=== PATIENT | male | born 1990 | race African-American/Black ===

== ENCOUNTER 2017-01-31 23:48 | Emergency (ER) | payer MEDICAID, OTHER ==
[~2017-01-31] VITALS: Ht 188 cm; Wt 183.6 kg
[~2017-01-31 23:48] MED LIST: ALBUAER3 INH; MONT10TA2 PO
[2017-01-31 23:51] VITALS: BP 171/102; PULSE 88; RESP 20; O2SAT 99
[2017-02-01] MEDS ORDERED: NAPR500 PO (00:04)
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
[2017-02-01 00:42] LABS: BLOOD, URINE NEG (NEG); COMMENT (UR) CULT NOT INDICATED; CULTURE IF INDICATED CULT NOT INDICATED; GLUCOSE,URINE NEG (NEG); KETONE, URINE NEG (NEG); MUCUS URINE FEW /lpf (OCC); NITRITE,URINE NEG (NEG); URINE COLOR YELLOW (YELLW/STRAW)
[2017-02-01] MEDS ORDERED: MOBI15TA PO ×3 (02:00→02:08)
[2017-02-01] MEDS ORDERED: ROBA750T PO ×3 (02:00→02:08)
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
[2017-02-01 02:12] VITALS: BP 143/99
== END 2017-02-01 02:22 | disposition home or self-care (01) ==
LOC: NEPE 23:48
DX: M79.2 Neuralgia and neuritis, unspecified (principal); M54.5 Low back pain
CPT/HCPCS: 72148; 81001; 99284; 99285

== ENCOUNTER 2017-08-13 07:09 | Emergency (ER) | payer MEDICAID, OTHER ==
[~2017-08-13] VITALS: Ht 188 cm; Wt 182.0 kg
[~2017-08-13 07:09] MED LIST changes: +MOBI15TA PO; +NAPR500 PO; +ROBA750T PO
[2017-08-13 07:40] VITALS: BP 169/96; PULSE 81; RESP 18; TEMP 97.5; O2SAT 98
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
[2017-08-13] MEDS ORDERED: FLUT50SP EACH NARE (07:54)
[2017-08-13] MEDS ORDERED: AMLO5TAB2 PO (07:54)
[2017-08-13] MEDS ORDERED: BUDE2SUS4 NEB (07:54)
[2017-08-13] MEDS ORDERED: VALS1TAB65 PO (07:54)
[2017-08-13] MEDS ORDERED: IPRASOL INH (07:54)
[2017-08-13] MEDS ORDERED: HYDR-4107 PO (07:55)
--- NOTE | 2017-08-13 10:15 | RADRPT ---
EXAM DATE/TIME: 08/13/2017 09:24 [facility] COMPARISON: No previous studies available for comparison. INDICATIONS : Bilateral foot drop with lower extremity numbness. MEDICAL HISTORY : Hypertension. SURGICAL HISTORY : None. ENCOUNTER: Initial ACUITY: 2 day PAIN SCORE: 0/10 LOCATION: back TECHNIQUE: Multiplanar multisequence MRI of the thoracic spine was performed. FINDINGS: VERTEBRA: Normal vertebral body height. Homogeneous marrow signal. No compression fracture injuries are demons trated. The disc spaces are maintained. ALIGNMENT: Normal. CORD: Normal position and configuration. T1-T2: Normal. T2-T3: The thecal sac has a normal diameter. No evidence of disc bulge or protrusion. T3-T4: The thecal sac has a normal diameter. No evidence of disc bulge or protrusion. T4-T5: The thecal sac has a normal diameter. No evidence of disc bulge or protrusion. T5-T6: The thecal sac has a normal diameter. No evidence of disc bulge or protrusion. T6-T7: Minimal left paracentral bulging. T7-T8: The thecal sac has a normal diameter. No evidence of disc bulge or protrusion. T8-T9: The thecal sac has a normal diameter. No evidence of disc bulge or protrusion. T9-T10: The thecal sac has a normal diameter. No evidence of disc bulge or protrusion. T10-T11: The thecal sac has a normal diameter. No evidence of disc bulge or protrusion. T11-T12: The thecal sac has a normal diameter. No evidence of disc bulge or protrusion. T12-L1: The thecal sac has a normal diameter. No evidence of disc bulge or protrusion. CONCLUSION: 1. Minimal left paracentral bulging at T6-T7 2. Otherwise, unremarkable exam for patient's age. Uche Crooks MD on August 13, 2017 at 10:11 Board Certified Radiologist. This report was verified electronically.
--- NOTE | 2017-08-13 10:18 | RADRPT ---
EXAM DATE/TIME: 08/13/2017 09:24 [facility] COMPARISON: MRI LUMBAR SPINE W/O CONTRAST, February 01, 2017, 1:18. INDICATIONS : Bilateral foot drop with lower extremity numbness. MEDICAL HISTORY : Hypertension. SURGICAL HISTORY : None. ENCOUNTER: Initial ACUITY: 2 day PAIN SCORE: 0/10 LOCATION: back TECHNIQUE: Multiplanar multisequence MRI of the lumbar spine was performed without contrast. FINDINGS: The most caudal appearing lumbar vertebra is numbered as L5. VERTEBRAE: Homogeneous signal. Normal alignment. No compression fracture injuries are demonstrated. There is di sc dehydration with disc space narrowing at L4-5 and L5-S1. There is a Schmorl's node along the super ior endplate of L5. No significant changes are seen compared to the prior exam. CONUS: Normal level and configuration. T12-L1: The thecal sac has a normal diameter. No evidence of disc bulge or protrusion. The neural foramina are patent bilaterally. L1-L2: The thecal sac has a normal diameter. No evidence of disc bulge or protrusion. The neural foramina are patent bilaterally. L2-L3: The thecal sac has a normal diameter. No evidence of disc bulge or protrusion. The neural foramina are patent bilaterally. L3-L4: The thecal sac has a normal diameter. No evidence of disc bulge or protrusion. The neural foramina are patent bilaterally. L4-L5: Mild broad-based and right lateral bulging with narrowing of the right neural foramina. The left neur al foramina is patent. L5-S1: Mild diffuse broad-based bulging and right paracentral bulging. Mild narrowing of the right neural fo ramina. The left neural foramina is patent. CONCLUSION: 1. Mild broad-based and right lateral bulging at L4-5. 2. Mild broad-based bulging and right paracentral bulging L5-S1 3. There is some disc dehydration with disc space narrowing at L4-5 and L5-S1 Uche Crooks MD on August 13, 2017 at 10:13 Board Certified Radiologist. This report was verified electronically.
[2017-08-13 10:51] VITALS: BP 176/99; PULSE 90; RESP 16; O2SAT 99
[2017-08-13] MEDS ORDERED: ROBA750T PO (12:14)
== END 2017-08-13 13:06 | disposition home or self-care (01) ==
LOC: NEPC 07:09
DX: M51.26 Other intervertebral disc displacement, lumbar region (principal); I10 Essential (primary) hypertension; G89.29 Other chronic pain
CPT/HCPCS: 72146; 72148; 99284